=== PATIENT | female | born 1975 | race Caucasian/White ===

== ENCOUNTER → 2018-06-25 14:44 | Outpatient (CLI) | payer OTHER, SELFPAY ==
[2018-06-25 15:49] LABS: Appearance Urine UA CLEAR; Bilirubin Urine UA NEGATIVE (NEGATIVE); Color Urine UA YELLOW; Glucose Urine UA NEGATIVE (Normal); Ketones Urine UA NEGATIVE (NEGATIVE); Leukocyte Esterase Urine UA NEGATIVE (NEGATIVE); Nitrite Urine UA Negative (Negative); Occult Blood Urine UA TRACE-INTACT (Negative); Protein Urine UA NEGATIVE (Negative); Urobilinogen Urine UA 0.2 E.U./dL (0.2)
[2018-06-25 16:19] LABS: Add Manual Diff / Slide Review NO; Basophils Percent Auto 0.4 % (0-2); Eosinophils Percent Auto 1.2 % (2-4); Hematocrit 39.3 % (36-46); Hemoglobin 13.5 g/dL (12.0-16.0); Lymphocytes Percent Auto 27.3 % (25-40); Mean Corpuscular HGB Conc 34.4 % (30-36); Mean Corpuscular Hemoglobin 29.4 PG (26-34); Mean Corpuscular Volume 85.6 fL (80-100); Monocytes Percent Auto 6.2 % (3-14); Neutrophils Percent Auto 64.9 % (50-75); Platelet Count 230 X10^3/uL (150-400); Red Blood Cell Count 4.59 X10^6/uL (4.0-5.2); Red Cell Distribution Width 13.6 % (11.6-14.8); White Blood Cell Count 7.9 X10^3/uL (4.5-11.0)
[2018-06-25 16:34] LABS: Alanine Aminotransferase 40 IU/L (9-52); Albumin 4.1 g/dL (3.5-5.0); Albumin Globulin Ratio 1.3 (1.0-2.8); Alkaline Phosphatase 77 U/L (38-126); Aspartate Aminotransferase 37 IU/L (14-36); BUN Creatinine Ratio 15.7 (6-22); Bilirubin Total 0.7 mg/dL (0.2-1.3); Blood Urea Nitrogen 11 mg/dL (7-17); Calcium 9.2 mg/dL (8.4-10.2); Carbon Dioxide 29 mmol/L (22-32); Chloride 103 mmol/L (98-107); Cholesterol 215 mg/dL (140-199); Estimated Glomerular Filt Rate > 60.0 mL/min (>60); Globulin 3.2 g/dL (1.7-4.1); Glucose 84 mg/dL (70-100); HDL Cholesterol 48 mg/dL (40-60); HEMOLYSIS < 15 (0-50); LDL Cholesterol Calculated 146 mg/dL (<100); Potassium 4.5 mmol/L (3.4-5.1); Sodium 139 mmol/L (137-145); Total Protein 7.3 g/dL (6.3-8.2); Triglycerides 103 mg/dL (35-150)
[2018-06-25 17:04] LABS: TSH w/ Reflex to FT4 1.16 uIU/mL (0.47-4.68)
[2018-06-27 11:55] LABS: Neutrophils Absolute Auto 5127 /uL (3000-5900)
== END ==
PROVIDERS: PCP Nurse Practitioner Family; Visit Provider Nurse Practitioner Family
DX: E78.5 Hyperlipidemia, unspecified (principal); E66.9 Obesity, unspecified; Z00.00 Encounter for general adult medical examination without abnormal findings
CPT/HCPCS: 36415; 80053; 80061; 81003; 84443; 85025

== ENCOUNTER → 2018-07-05 07:39 | Outpatient (CLI) | payer OTHER, SELFPAY ==
--- NOTE | 2018-07-05 07:39 | DI.US.S_ITS ---
PROCEDURE: US SOFT TISSUE HEAD AND NECK INDICATIONS: RIGHT POSTERIOR NECK FIXED NONTENDER NODULE TECHNIQUE: Real-time scanning was performed of the neck region of interest, with image documentation. COMPARISON: None. FINDINGS: 5 x 4 x 4 mm hypoechoic lesion is noted in the subcutaneous soft tissues of the right posterior neck which corresponds to clinically palpable lump. Color Doppler evaluation demonstrates no internal vascularity. There is sonographic through-transmission associated with the lesion. No calcifications associated with the lesion. No adjacent soft tissue edema. IMPRESSION: 5 by 4 x 4 millimeter hypoechoic lesion in the subcutaneous soft tissues of the posterior right neck. Lesion may represent a small sebaceous cysts, however imaging characteristics of the lesion are nonspecific. Decision to biopsy/resect should be based on clinical assessment Dictated by: July Desir MD, PhD on 07/05/2018 at 8:34 Approved by: July Desir MD, PhD on 07/05/2018 at 8:37
== END ==
PROVIDERS: Family Provider Nurse Practitioner; PCP Nurse Practitioner Family; Visit Provider Nurse Practitioner Family
DX: R22.1 Localized swelling, mass and lump, neck (principal)
CPT/HCPCS: 76536

== ENCOUNTER → 2019-07-04 15:15 | Outpatient (CLI) | payer OTHER, SELFPAY ==
--- NOTE | 2019-07-04 15:18 | DI.RAD.S_ITS ---
PROCEDURE: XR CHEST 2V INDICATIONS: new onset, ongoing wheeze TECHNIQUE: 2 views of the chest were acquired. COMPARISON: None. FINDINGS: Surgical changes and devices: Right breast surgical clips related to partial mastectomy.. Lungs and pleura: Lungs are clear. No pleural effusions or pneumothorax. Mediastinum: Mediastinal contours are normal. Heart size is normal. Bones and chest wall: No suspicious bony abnormalities. Soft tissues appear unremarkable. IMPRESSION: 1. No source for wheezing identified radiographically. Dictated by: Geoff Medel [facility] Interpreted: Dirk Pleitez MD on 07/04/2019 at 15:47 Approved by: Dirk Pleitez M.D. on 07/07/2019 at 8:37
== END ==
PROVIDERS: PCP Nurse Practitioner Family; Visit Provider Nurse Practitioner Family
DX: R06.2 Wheezing (principal)
CPT/HCPCS: 71046